=== PATIENT | female | born 1955 | race Two or more races ===

== ENCOUNTER 2017-12-05 01:18 | Emergency (ER) | payer MEDICAID ==
[~2017-12-05] VITALS: Ht 157.5 cm; Wt 54.9 kg
[2017-12-05 01:22] VITALS: Ht 157.5 cm; Wt 54.9 kg
[2017-12-05 02:47] VITALS: BP 144/72
== END 2017-12-05 02:47 | disposition home or self-care (01) ==
LOC: ED 01:18
DX: F41.9 Anxiety disorder, unspecified (principal); G47.00 Insomnia, unspecified

== ENCOUNTER 2017-12-08 12:56 | Emergency (ER) | payer MEDICAID ==
[2017-12-08 16:50] LABS: BASOPHIL % 0.4 % (0-2); PLATELET COUNT 269 x10^3mcL (130-400); RED CELL DISTRIBUTION WIDTH 13.8 % (11.5-14.5)
[2017-12-08 17:01] LABS: microscopic required? NO
[2017-12-08 17:09] LABS: CALCIUM 8.8 mg/dL (8.5-10.1); CHLORIDE SERUM 104 mmol/L (98-107); CREATININE SERUM 0.5 mg/dL (0.6-1.0); GFR1 > 60 mL/min; GLUCOSE SERUM 91 mg/dL (74-106); POTASSIUM SERUM 3.4 mmol/L (3.5-5.1); SODIUM SERUM 140 mmol/L (136-145)
[2017-12-08 17:11] LABS: ALBUMIN 3.7 g/dL (3.4-5.0); ALKALINE PHOSPHATASE 65 U/L (46-116); ALT/SGPT 22 U/L (14-59); AMYLASE 63 U/L (25-115); AST/SGOT 21 U/L (15-37); BILIRUBIN TOTAL 0.51 mg/dL (0.20-1.00); LIPASE 182 IU/L (73-393); TOTAL PROTEIN, SERUM 7.2 g/dL (6.4-8.2)
[2017-12-08 17:21] LABS: urine erythrocyte NEGATIVE (NEGATIVE)
[2017-12-08 20:00] VITALS: BP 133/83
== END 2017-12-08 20:00 | disposition home or self-care (01) ==
LOC: ED 12:56
PROVIDERS: Emergency Medicine
DX: B34.9 Viral infection, unspecified (principal)
CPT/HCPCS: 83880; J1885; J2405; J7030

== ENCOUNTER 2019-01-04 13:33 | Emergency (ER) | payer MEDICAID ==
[~2019-01-04] VITALS: Ht 154.9 cm; Wt 60.8 kg
[2019-01-04 14:23] VITALS: Ht 154.9 cm; Wt 60.8 kg
[2019-01-04 17:12] VITALS: BP 139/71
== END 2019-01-04 17:12 | disposition home or self-care (01) ==
LOC: ED 13:33
DX: J11.1 Influenza due to unidentified influenza virus with other respiratory manifestations (principal); E78.00 Pure hypercholesterolemia, unspecified; F32.9 Major depressive disorder, single episode, unspecified; G47.00 Insomnia, unspecified; F41.9 Anxiety disorder, unspecified; Z98.890 Other specified postprocedural states
CPT/HCPCS: 87804

== ENCOUNTER 2019-07-10 13:34 | Emergency (ER) | payer MEDICAID ==
[~2019-07-10] VITALS: Ht 157.5 cm; Wt 62.1 kg
[2019-07-10 14:05] VITALS: BP 155/68; Ht 157.5 cm; Wt 62.1 kg
== END 2019-07-10 16:11 | disposition left against medical advice (07) ==
LOC: ED 13:34
DX: Z53.21 Procedure and treatment not carried out due to patient leaving prior to being seen by health care provider (principal)

== ENCOUNTER 2019-07-11 00:56 | Emergency (ER) | payer MEDICAID ==
[~2019-07-11] VITALS: Ht 160 cm; Wt 60.8 kg
[2019-07-11 01:13] VITALS: Ht 160 cm; Wt 60.8 kg
[2019-07-11 02:32] VITALS: BP 150/69
== END 2019-07-11 02:34 | disposition home or self-care (01) ==
LOC: ED 00:56
DX: L03.032 Cellulitis of left toe (principal); L60.0 Ingrowing nail; F41.9 Anxiety disorder, unspecified; E78.00 Pure hypercholesterolemia, unspecified; F32.9 Major depressive disorder, single episode, unspecified
CPT/HCPCS: Q0092

== ENCOUNTER 2019-09-06 10:51 | Emergency (ER) | payer MEDICAID ==
[~2019-09-06] VITALS: Ht 162.6 cm; Wt 60.3 kg
[2019-09-06 10:59] VITALS: Ht 162.6 cm; Wt 60.3 kg
[2019-09-06 11:44] LABS: BASOPHIL % 0.4 % (0-2); PLATELET COUNT 308 x10^3mcL (130-400); RED CELL DISTRIBUTION WIDTH 14.1 % (11.5-14.5)
[2019-09-06 11:56] LABS: CALCIUM 8.6 mg/dL (8.5-10.1); CARBON DIOXIDE 26.8 mmol/L (21-32); CHLORIDE SERUM 106 mmol/L (98-107); CREATININE SERUM 0.5 mg/dL (0.6-1.0); GFR1 > 60 mL/min; GLUCOSE SERUM 94 mg/dL (74-106); POTASSIUM SERUM 3.7 mmol/L (3.5-5.1); SODIUM SERUM 142 mmol/L (136-145)
[2019-09-06 12:01] LABS: ALKALINE PHOSPHATASE 90 U/L (46-116); ALT/SGPT 33 U/L (14-59); AST/SGOT 27 U/L (15-37); BILIRUBIN TOTAL 0.3 mg/dL (0.20-1.00); TOTAL PROTEIN, SERUM 7.2 g/dL (6.4-8.2)
[2019-09-06 13:32] VITALS: BP 125/77
== END 2019-09-06 13:32 | disposition home or self-care (01) ==
LOC: ED 10:51
DX: R07.89 Other chest pain (principal); G89.29 Other chronic pain; M54.5 Low back pain; R42 Dizziness and giddiness; F41.9 Anxiety disorder, unspecified; E78.00 Pure hypercholesterolemia, unspecified; F32.9 Major depressive disorder, single episode, unspecified
CPT/HCPCS: 36415; Q0092